=== PATIENT | female | born 1985 | race Caucasian/White ===

== ENCOUNTER 2018-05-13 14:44 | Emergency (ER) | payer OTHER ==
[~2018-05-13] VITALS: Ht 160 cm; Wt 90.9 kg
[2018-05-13 14:48] VITALS: BP 131/77; TEMP 98.9
[2018-05-13] MEDS ORDERED: AMOXICILLIN 8751 TAB PO (16:09)
[2018-05-13 16:25] VITALS: PULSE 86
== END 2018-05-13 16:26 | disposition home or self-care (01) ==
LOC: COL.ER 14:44
DX: S91.352A Open bite, left foot, initial encounter (principal); Z98.890 Other specified postprocedural states; Z88.2 Allergy status to sulfonamides; Z90.89 Acquired absence of other organs; W55.01XA Bitten by cat, initial encounter